=== PATIENT | female | born 1960 | race Two or more races ===

== ENCOUNTER 2024-03-25 11:17 | Emergency (ER) | payer MEDICAID, OTHER ==
[~2024-03-25] VITALS: Ht 157.5 cm; Wt 74.3 kg
[2024-03-25 13:24] VITALS: TEMP 99.4
[2024-03-25] MEDS ORDERED: CIPR-173 PO (14:39)
[2024-03-25 14:48] LABS: Urine Bacteria FEW /hpf (None Seen); Urine Blood 2+ /uL (Negative); Urine Clarity Turbid (Clear); Urine Color Dark-Yellow (Yellow); Urine Mucus FEW (None Seen); Urine Protein, UAD 1+ (Negative); Urine Specific Gravity 1.022 (1.001-1.035); Urine Urobilinogen Normal (Negative); Urine WBC 168 /hpf (0 - 5)
[2024-03-25] MEDS: CIPROFLOXACIN HCL 500 MG TAB PO ONE (14:54)
[2024-03-25 15:45] VITALS: BP 172/65; PULSE 60; RESP 16; O2SAT 99
== END 2024-03-25 15:58 | disposition home or self-care (01) ==
LOC: ER 11:17
DX: N39.0 Urinary tract infection, site not specified (principal); I10 Essential (primary) hypertension; Z90.710 Acquired absence of both cervix and uterus
CPT/HCPCS: 81001; 87086

== ENCOUNTER 2024-04-17 11:02 | Emergency (ER) | payer MEDICAID ==
[~2024-04-17 11:02] MED LIST: CIPR-173 PO
[2024-04-17 12:08] LABS: Urine Bacteria FEW /hpf (None Seen); Urine Blood 3+ /uL (Negative); Urine Clarity Turbid (Clear); Urine Color Light-Orange (Yellow); Urine Mucus FEW (None Seen); Urine Protein, UAD 2+ (Negative); Urine Specific Gravity 1.029 (1.001-1.035); Urine Urobilinogen Normal (Negative); Urine WBC 163 /hpf (0 - 5)
[2024-04-17 14:12] LABS: Basophils # (auto) 0.1 10 ^3/uL (0-0.2); Eosinophils # (auto) 0.1 10 ^3/uL (0-0.8); Eosinophils % (auto) 1.6 % (0.0-7.0); Hematocrit 37.5 % (36.0-46.0); Hemoglobin 12.7 g/dL (12.2-16.2); Lymphocytes % (auto) 33.2 % (10.0-50.0); Mean Corpuscular Hemoglobin 31.7 pg (28.0-32.0); Mean Corpuscular Hgb Conc. 33.9 g/dL (32.0-36.0); Mean Corpuscular Volume 93.4 fL (80.0-100.0); Monocytes # (auto) 0.5 10 ^3/uL (0-1.3); Monocytes % (auto) 7.9 % (0.0-12.0); Neutrophils # (auto) 3.3 10 ^3/uL (1.6-8.6); Neutrophils % (auto) 56.3 % (37.0-80.0); Red Blood Cells 4.01 10^6/uL (4.0-5.20); Red Cell Distribution Width 13.1 % (11.8-14.3); White Blood Cell 5.9 10^3/uL (4.4-10.8)
[2024-04-17 15:07] LABS: Alanine Aminotransferase 15 U/L (7-40); Albumin 4.4 g/dL (3.2-4.8); Alkaline Phosphatase 112 U/L (46-116); Anion Gap 9 (5-15); Aspartate Aminotransferase 11 U/L (13-40); BUN/Creatinine Ratio 18.6 (10.0-20.0); Bilirubin, Total 1.2 mg/dL (0.2-1.0); Blood Urea Nitrogen 11 mg/dL (9-23); Calcium 9.4 mg/dL (8.5-10.1); Carbon Dioxide 23 mmol/L (20-30); Chloride 108 mmol/L (98-107); Glucose 95 mg/dL (74-106); Potassium 3.8 mmol/L (3.5-5.1); Sodium 140 mmol/L (136-145); Total Protein 6.6 g/dL (5.7-8.2)
[2024-04-17] MEDS ORDERED: BACDST PO (15:12)
[2024-04-17] MEDS ORDERED: PHEN-922 PO (15:12)
[2024-04-17 15:13] VITALS: BP 160/74; PULSE 51; RESP 16; TEMP 98.1; O2SAT 98
== END 2024-04-17 15:20 | disposition home or self-care (01) ==
LOC: ER 11:09
DX: N39.0 Urinary tract infection, site not specified (principal); K76.9 Liver disease, unspecified; R91.1 Solitary pulmonary nodule; I10 Essential (primary) hypertension; Z90.710 Acquired absence of both cervix and uterus
CPT/HCPCS: 36415; 74176; 80053; 81001; 85025

== ENCOUNTER 2024-05-19 13:09 | Inpatient (IN) | payer MEDICAID ==
[~2024-05-19] VITALS: Ht 154.9 cm; Wt 73.9 kg
[~2024-05-19 13:09] MED LIST changes: +BACDST PO; +PHEN-922 PO
[2024-05-19 13:57] LABS: Urine Bacteria None Seen /hpf (None Seen)
[2024-05-19 14:18] LABS: Urine Blood 3+ /uL (Negative); Urine Clarity Ex.Turbid (Clear); Urine Color Light-Orange (Yellow); Urine Mucus FEW (None Seen); Urine Protein, UAD 2+ (Negative); Urine Specific Gravity 1.026 (1.001-1.035); Urine Urobilinogen Normal (Negative); Urine WBC 282 /hpf (0 - 5); Urine pH 5.5 (5.0-9.0)
[2024-05-19 15:36] LABS: Basophils # (auto) 0.1 10 ^3/uL (0-0.2); Basophils % (auto) 0.9 % (0.0-2.0); Eosinophils # (auto) 0.1 10 ^3/uL (0-0.8); Eosinophils % (auto) 1.3 % (0.0-7.0); Hematocrit 37.5 % (36.0-46.0); Hemoglobin 13.3 g/dL (12.2-16.2); Lymphocytes # (auto) 2.3 10 ^3/uL (0.4-5.4); Lymphocytes % (auto) 35.7 % (10.0-50.0); Mean Corpuscular Hemoglobin 32.6 pg (28.0-32.0); Mean Corpuscular Hgb Conc. 35.3 g/dL (32.0-36.0); Mean Corpuscular Volume 92.3 fL (80.0-100.0); Monocytes # (auto) 0.6 10 ^3/uL (0-1.3); Monocytes % (auto) 8.7 % (0.0-12.0); Neutrophils # (auto) 3.5 10 ^3/uL (1.6-8.6); Neutrophils % (auto) 53.4 % (37.0-80.0); Nucleated Red Blood Cells % 0.1 %; Platelet Count (auto) 286 10^3/uL (140-450); Red Blood Cells 4.07 10^6/uL (4.0-5.20); Red Cell Distribution Width 13.1 % (11.8-14.3); White Blood Cell 6.6 10^3/uL (4.4-10.8)
[2024-05-19 15:41] VITALS: PULSE 69; RESP 16; O2SAT 96
[2024-05-19 15:56] LABS: Chloride 108 mmol/L (98-107); Potassium 3.6 mmol/L (3.5-5.1); Sodium 142 mmol/L (136-145)
[2024-05-19 15:57] LABS: Anion Gap 6 (5-15); Carbon Dioxide 28 mmol/L (20-30)
[2024-05-19 15:58] LABS: Calcium 9.5 mg/dL (8.7-10.4)
[2024-05-19 16:02] LABS: BUN/Creatinine Ratio 17.3 (10.0-20.0); Blood Urea Nitrogen 13 mg/dL (9-23); Glucose 96 mg/dL (74-106)
[2024-05-19 17:14] VITALS: RESP 16; O2SAT 97
[2024-05-19] MEDS: cefTRIAXone 2GM/50ML D5W 50 ML IV ONE (17:18)
[2024-05-19] MEDS ORDERED: ONDANSETRON HCL 4 MG/2 ML VIAL IV PRN (17:45)
[2024-05-19] MEDS ORDERED: DOCUSATE SOD 100 MG CAP PO PRN (17:45)
[2024-05-19] MEDS ORDERED: NITROGLYCERIN 0.4 MG SL TAB SL PRN (18:30)
[2024-05-19] MEDS ORDERED: MORPHINE SULFATE INJ 2 MG/ml SYRG IV PRN (18:30)
[2024-05-19 21:26] VITALS: BP 160/73; PULSE 58; RESP 18; TEMP 98.2; O2SAT 95
[2024-05-19] MEDS: SODIUM CHLOR 0.9% PF (SALINE LOCK) 10ML VIAL/SYR IV SCH (22:00)
[2024-05-19 22:26] VITALS: PULSE 59; RESP 18; O2SAT 96
[2024-05-19 22:42] VITALS: BP 160/73; PULSE 69; RESP 18; TEMP 98.2; O2SAT 96
[2024-05-20] VITALS (10 sets, daily range): BP systolic 124–187; BP diastolic 67–90; PULSE 53–82; RESP 16–20; TEMP 97.8–98.8; O2SAT 93–98
[2024-05-20] MEDS: hydrALAZINE HCL 20 MG/ML VL IV PRN (04:58)
[2024-05-20 05:50] LABS: Basophils # (auto) 0 10 ^3/uL (0-0.2); Basophils % (auto) 0.7 % (0.0-2.0); Eosinophils # (auto) 0.2 10 ^3/uL (0-0.8); Eosinophils % (auto) 2.4 % (0.0-7.0); Hematocrit 37.7 % (36.0-46.0); Hemoglobin 13.3 g/dL (12.2-16.2); Lymphocytes # (auto) 2.6 10 ^3/uL (0.4-5.4); Lymphocytes % (auto) 40.2 % (10.0-50.0); Mean Corpuscular Hemoglobin 32.7 pg (28.0-32.0); Mean Corpuscular Hgb Conc. 35.2 g/dL (32.0-36.0); Mean Corpuscular Volume 92.8 fL (80.0-100.0); Monocytes # (auto) 0.6 10 ^3/uL (0-1.3); Monocytes % (auto) 8.9 % (0.0-12.0); Neutrophils # (auto) 3.1 10 ^3/uL (1.6-8.6); Neutrophils % (auto) 47.8 % (37.0-80.0); Nucleated Red Blood Cells % 0.1 %; Platelet Count (auto) 284 10^3/uL (140-450); Red Blood Cells 4.06 10^6/uL (4.0-5.20); Red Cell Distribution Width 12.8 % (11.8-14.3); White Blood Cell 6.4 10^3/uL (4.4-10.8)
[2024-05-20 06:14] LABS: Alanine Aminotransferase 18 U/L (7-40); Albumin 4.2 g/dL (3.2-4.8); Alkaline Phosphatase 108 U/L (46-116); Anion Gap 9 (5-15); Aspartate Aminotransferase 11 U/L (13-40); BUN/Creatinine Ratio 20.9 (10.0-20.0); Bilirubin, Total 1.1 mg/dL (0.2-1.0); Blood Urea Nitrogen 14 mg/dL (9-23); Calcium 9.5 mg/dL (8.7-10.4); Carbon Dioxide 26 mmol/L (20-30); Chloride 107 mmol/L (98-107); Glucose 115 mg/dL (74-106); Potassium 3.9 mmol/L (3.5-5.1); Sodium 142 mmol/L (136-145); Total Protein 6.7 g/dL (5.7-8.2)
[2024-05-20] MEDS: cefTRIAXone 1GM/50ML D5W 50 ML IV SCH (09:13)
[2024-05-20] MEDS: HYDROcodone-ACET 5/325MG TAB PO PRN (16:07)
[2024-05-20] MEDS: ACETAMINOPHEN 325 MG TAB PO PRN (18:27)
[2024-05-21 01:00] VITALS: BP 146/76; PULSE 88; RESP 18; TEMP 97.9; O2SAT 96
[2024-05-21 05:00] VITALS: BP 154/79; PULSE 83; RESP 18; TEMP 97.8; O2SAT 98
[2024-05-21 08:00] VITALS: PULSE 79; RESP 17; O2SAT 98
[2024-05-21 09:00] VITALS: BP 108/55; PULSE 79; RESP 17; TEMP 98.2; O2SAT 17
[2024-05-21] MEDS ORDERED: CIPR-173 PO (10:06)
[2024-05-21 11:54] VITALS: BP 136/75; PULSE 65; RESP 16; TEMP 98.6; O2SAT 99
[2024-05-21 13:00] VITALS: BP 140/64; PULSE 90; RESP 17; TEMP 98.3; O2SAT 97
== END 2024-05-21 13:05 | disposition home or self-care (01) | DRG 463 ==
LOC: ER 13:12 → OVERFLOW 18:28 → WEST WING 22:00
PROVIDERS: ADMIT Nurse Practitioner Family; ATTEND Family Medicine
DX: N39.0 Urinary tract infection, site not specified (principal); B96.20 Unspecified Escherichia coli [E. coli] as the cause of diseases classified elsewhere; I10 Essential (primary) hypertension; Z90.710 Acquired absence of both cervix and uterus
CPT/HCPCS: 36415; 80048; 80053; 81001; 85025; 87040; 87086; 87088; 87186; 96365; 96366; G0378